=== PATIENT | female | born 2000 | race Caucasian/White ===

== ENCOUNTER 2020-06-14 13:39 | Emergency (ER) | payer OTHER ==
[~2020-06-14 13:39] MED LIST: MACROBID 100 M100 MG PO; ZOFRAN4 MG PO
[2020-06-14] MEDS ORDERED: IBUPROFEN800 MG PO (16:38)
[2020-06-14] MEDS ORDERED: CYCLOBENZAPRINE5 MG PO (16:38)
== END 2020-06-14 16:49 | disposition home or self-care (01) ==
LOC: ER1 13:39
DX: S39.012A Strain of muscle, fascia and tendon of lower back, initial encounter (principal); G43.909 Migraine, unspecified, not intractable, without status migrainosus; F17.210 Nicotine dependence, cigarettes, uncomplicated; Z90.49 Acquired absence of other specified parts of digestive tract; Z88.5 Allergy status to narcotic agent; Z88.6 Allergy status to analgesic agent; X50.9XXA Other and unspecified overexertion or strenuous movements or postures, initial encounter
CPT/HCPCS: 72100; 81001; 84703; 99283